=== PATIENT | female | born 1950 | race Caucasian/White ===

== ENCOUNTER 2024-12-25 08:51 | Emergency (ER) | payer MEDICARE, BC ==
[~2024-12-25] VITALS: Ht 160 cm; Wt 73.5 kg
[~2024-12-25 08:51] MED LIST: ADVAIR 250-501 EACH INH; ALBUTEROL SULF8.5 GM INH; ALEVE220 M1 PO; AZELASTINE137 MCG/0. NAS; CALCIUM 1,2001 EACH PO; CELEBREX200 MG PO; CELECOXIB200 MG PO; CETIRIZINE HCL10 MG PO; CO Q-10100 MG PO; COREG6.25 MG PO; CYMBALTA30 MG PO; EPIPEN 2-P0.3 MG/0.3 IM; FLEVOXIN TABLE1 EACH PO; FLOVENT DISKUS50 MCG IH; GABAPENTIN300 MG PO; HEALTHYLAX17 GM PO; IMITREX100 MG PO; IRON18 MG PO; MULTI VITAMIN1 EACH PO; NYSTATIN15 GM TOP; OMEPRAZOLE40 MG PO; PATANOL5 ML OD; POTASSIUM99 M1 PO; PRESERVISION A1 EAC2 PO; RED YEAST RICE600 M1 PO; SINGULAIR10 MG PO; SYMBICORT 16010.2 GM INH; THERA TEARS NU1 EACH PO; TRAMADOL HCL50 MG PO; VENTOLIN HFA18 GM IH; VITAMIN A AND1 EACH PO; VITAMIN B COMP1 EACH PO; VITAMIN D2000 UNIT PO; VITAMIN D3400 UNIT PO; VITAMIN K100 MCG PO; XARELTO10 MG PO; ZOMIG5 MG PO
[2024-12-25] MEDS ORDERED: DIPHTH,PERTUSS(ACELL),TET VAC 0.5 ML SYRINGE IM ONE (10:00)
[2024-12-25 10:39] VITALS: BP 156/80
[2025-01-30] MEDS ORDERED: WIXELA 500-501 EACH PO (12:33)
[2025-01-30] MEDS ORDERED: LATANOPROST2.5 ML OPTH (12:34)
[2025-01-30] MEDS ORDERED: IRON18 M1 PO (12:35)
[2025-01-30] MEDS ORDERED: THERA TEARS15 ML OPTH (12:35)
[2025-01-30] MEDS ORDERED: BEET ROOT500 MG PO (12:36)
[2025-01-30] MEDS ORDERED: ELDERBERRY350 MG PO (12:36)
[2025-01-31] MEDS ORDERED: OFLOXACIN5 M1 OD (09:20)
[2025-01-31] MEDS ORDERED: CELECOXIB200 MG PO (09:25)
== END 2024-12-25 10:39 | disposition home or self-care (01) ==
LOC: ED 08:51
DX: M25.521 Pain in right elbow (principal); M25.511 Pain in right shoulder; J45.909 Unspecified asthma, uncomplicated; K21.9 Gastro-esophageal reflux disease without esophagitis; Z88.3 Allergy status to other anti-infective agents; Z88.8 Allergy status to other drugs, medicaments and biological substances; Z91.041 Radiographic dye allergy status; Z91.018 Allergy to other foods; Z88.0 Allergy status to penicillin; Z91.013 Allergy to seafood; Z88.5 Allergy status to narcotic agent; Z79.01 Long term (current) use of anticoagulants; Z79.51 Long term (current) use of inhaled steroids; Z79.899 Other long term (current) drug therapy; W01.0XXA Fall on same level from slipping, tripping and stumbling without subsequent striking against object, initial encounter
CPT/HCPCS: 73030; 73080; 90471; 90715; 99283-25

== ENCOUNTER 2025-05-20 12:44 | Emergency (ER) | payer MEDICARE, BC ==
[~2025-05-20] VITALS: Ht 160 cm; Wt 69.1 kg
[~2025-05-20 12:44] MED LIST changes: +BEET ROOT500 MG PO; +ELDERBERRY350 MG PO; +IRON18 M1 PO; +LATANOPROST2.5 ML OPTH; +OFLOXACIN5 M1 OD; +THERA TEARS15 ML OPTH; +WIXELA 500-501 EACH PO
[2025-05-20 13:23] LABS: BASOPHILS 0.2 % (0.1-1.2); EOSINOPHILS 0.2 % (0.7-5.8); LYMPHOCYTES 18.3 % (19.3-51.7); MCH 27.9 PG (25.6-32.2); MCHC 33.5 g/dL (32.2-35.5); MCV 83.3 fL (79.4-94.8); MONOCYTES 6.2 % (4.7-12.5); NEUTROPHILS 74.7 % (34.0-71.1); RBC 5.69 M/uL (3.93-5.22)
[2025-05-20 13:35] LABS: ALT (SGPT) 19.0 U/L (14-59); AST (SGOT) 15.0 U/L (15-37); GLOMERULAR FILTRATION RATE,EST 93.0 mL/min (>60); PROTEIN, TOTAL 7.1 g/dL (6.4-8.2); UREA NITROGEN 14.0 mg/dL (7-18)
[2025-05-20] MEDS ORDERED: SODIUM CHLORIDE 0.9% 1,000 ML IV PRN (13:45)
[2025-05-20 15:16] LABS: BLOOD/HGB, URINE NEGATIVE (Negative); KETONE, URINE TRACE (Negative); LEUK ESTERASE, URINE NEGATIVE (negative); NITRITE, URINE NEGATIVE (negative)
[2025-05-20] MEDS ORDERED: ONDANSETRON ODT4 MG PO (15:30)
[2025-05-20 15:43] VITALS: BP 167/85
== END 2025-05-20 15:53 | disposition home or self-care (01) ==
LOC: ED 12:44
PROVIDERS: Emergency Medicine
DX: R11.2 Nausea with vomiting, unspecified (principal); R19.7 Diarrhea, unspecified; K21.9 Gastro-esophageal reflux disease without esophagitis; Z91.041 Radiographic dye allergy status; Z88.0 Allergy status to penicillin; Z91.013 Allergy to seafood; Z88.8 Allergy status to other drugs, medicaments and biological substances; Z91.048 Other nonmedicinal substance allergy status; Z79.2 Long term (current) use of antibiotics; Z79.899 Other long term (current) drug therapy
CPT/HCPCS: 36415; 80053; 81003; 85025; 96361; 96374; 99284-25; J2405; J7030